=== PATIENT | male | born 1955 | race Caucasian/White ===

== ENCOUNTER 2017-01-09 08:19 | Outpatient (CLI) | payer OTHER ==
[2017-01-09 10:47] LABS: #Basophils 0.1 thou/uL (0.0-0.2); #Eosinphils 0.4 thou/uL (0.0-0.7); #Lymphocytes 4.2 thou/uL (1.20-3.40); #Neutrophils 4.8 thou/uL (1.40-6.50); %Eosinophils 3.7 % (0.0-10.0); %Lymphocytes 39.9 % (21.0-51.0); %Monocytes 9.2 % (0.0-10.0); Bilirubin Negative (Negative); Blood, Urine Negative (Negative); Glucose, Urine (Dipstick) Negative (Negative); Hematocrit 46.7 % (42.0-52.0); Ketone, Urine Negative (Negative); Mean Platelet Volume 8.4 fL (7.4-10.4); Nitrite Negative (Negative); Protein, Urine (Dipstick) Negative (Neg-Trace); Red Blood Cell (RBC) Count 4.79 mill/uL (4.70-6.10); Urobilinogen 0.2 mg/dL (0.2-1.0); White Blood Cell (WBC) Count 10.4 thou/uL (4.8-10.8)
[2017-01-09 10:50] LABS: Bacteria/HPF None Seen HPF (None Seen); Hyaline Casts/LPF 0-3 HYALINE CAST LPF (0-3 Hyaline); Squamous Epithelial 0-3 HPF (0-3)
[2017-01-09 10:54] LABS: Prothrombin Time 13.6 SEC (12.0-14.7)
[2017-01-09 11:03] LABS: RBC/HPF None Seen HPF (0-3)
[2017-01-09 11:11] LABS: Anion Gap 13 mmol/L (10-20); BUN (Urea Nitrogen) 15 mg/dL (8.4-25.7); Calc. Creatinine Clearance 0 mL/min (70-130); Calcium 9.2 mg/dL (7.8-10.44); Carbon Dioxide 22 mmol/L (22-29); Chloride 105 mmol/L (98-107); Estimated GFR-MDRD 74
== END 2017-01-09 08:20 | disposition home or self-care (01) ==
LOC: LABBT 08:19
PROVIDERS: ATTEND Orthopaedic Surgery
DX: Z01.818 Encounter for other preprocedural examination (principal); M17.11 Unilateral primary osteoarthritis, right knee
CPT/HCPCS: 80048; 81001; 85025; 85610; 86850; 86900; 86901; 87081; 93005; 93010

== ENCOUNTER 2017-01-09 08:30 | Inpatient (IN) | payer OTHER ==
[2017-01-09 09:15] VITALS: BMI 32.3
[2017-01-16] MEDS ORDERED: Ropivacaine 0.2% HCl/PF 20 ML ONE (06:23)
[2017-01-16] MEDS ORDERED: Lidocaine 1% (PF) 30 ML VIAL ONE (06:23)
[2017-01-16] MEDS ORDERED: Fentanyl 100 MCG/2 ML VIAL ONE ×2 (06:23→07:08)
[2017-01-16] MEDS ORDERED: Midazolam HCl 2 mg/2 ml Vial ONE (06:23)
[2017-01-16] MEDS ORDERED: Clindamycin/D5W 600 mg/50 ml Premix Bag ONE (06:24)
[2017-01-16] MEDS ORDERED: Tranexamic Acid 1,000 MG/100 ML BAG ONE ×2 (06:24→08:48)
[2017-01-16] MEDS ORDERED: Bupivacaine/Epinephrine 0.25% 30 ML VIAL ONE (06:38)
[2017-01-16] MEDS ORDERED: Levofloxacin 500 mg/D5W 100 ml Premix Bag ONE (06:45)
[2017-01-16] MEDS ORDERED: Zolpidem Tartrate 5 MG TAB PO PRN ×2 (07:13→09:21)
[2017-01-16] MEDS ORDERED: Promethazine HCl 25 MG/ML VIAL IM PRN ×3 (07:13→09:21)
[2017-01-16] MEDS ORDERED: traMADol HCl 50 MG TAB PO PRN ×3 (07:13→09:21)
[2017-01-16] MEDS ORDERED: HYDROcodone/Acetaminophen 10/325 mg Tablet PO PRN ×3 (07:13→09:21)
[2017-01-16] MEDS ORDERED: Ondansetron HCl/PF 4 MG/2 ML Vial IVP PRN ×3 (07:13→09:21)
[2017-01-16] MEDS ORDERED: Ropivacaine HCl/PF 250 ML in Premix Bag 1 BAG NERVE BLCK SCH (07:13)
[2017-01-16] MEDS ORDERED: Ketorolac Tromethamine 30 MG/ML VIAL IVP PRN ×2 (07:13→09:21)
[2017-01-16] MEDS ORDERED: Fentanyl 100 MCG/2 ML VIAL IV PRN (07:14)
[2017-01-16] MEDS ORDERED: Promethazine HCl 25 MG/ML VIAL SLOW IVP PRN (07:45)
[2017-01-16] MEDS ORDERED: Tranexamic Acid 1,000 MG in Sodium Chloride 0.9% 100 ML IVPB SCH (09:15)
[2017-01-16] MEDS ORDERED: Fentanyl 100 MCG/2 ML VIAL SLOW IVP PRN ×2 (09:21)
[2017-01-16] MEDS ORDERED: Acetaminophen 325 MG TAB PO PRN (09:21)
[2017-01-16] MEDS ORDERED: diphenhydrAMINE 25 MG CAP PO PRN (09:21)
--- NOTE | 2017-01-16 10:16 | RAD ---
TWO VIEWS RIGHT KNEE: Date: 01-16-17 Comparison: None. History: Evaluate knee following arthroplasty. FINDINGS: There is evidence of recent right total knee arthroplasty with post-operative gas noted within the morteza int and anterior to the right knee joint. There is no evidence for hardware failure. No acute fractur e or dislocation. IMPRESSION: Status post right total knee arthroplasty as above. POS: [facility]
--- NOTE | 2017-01-16 10:55 | OP ---
DATE OF PROCEDURE: 01/16/2017 PREOPERATIVE DIAGNOSIS: Right knee osteoarthritis. POSTOPERATIVE DIAGNOSIS: Right knee osteoarthritis. PROCEDURE PERFORMED: Right total knee arthroplasty. STAFF: Renny Javed M.D. POULTRY FIELD SERVICE TECHNICIAN: Federico Moreno PA-C. ANESTHESIA: Huber. The patient received a LMA with a sciatic catheter single shot sciatic. ESTIMATED BLOOD LOSS: 100 mL. TOURNIQUET TIME: 64 minutes. ANTIBIOTICS: Clindamycin and Levaquin. IMPLANTS: The patient had a Simplex cement with a [place] CR size 5 femur, size 5 tibia, 9 CS femur with A32 patella [place] implants. COMPLICATIONS: None. HISTORY OF PRESENT ILLNESS: Mr. Love is a pleasant 61-year-old male who presented with lateral and medial knee pain for over a year. The patient has continued to have pain and had difficulty with wa lking and standing for long periods of time. I discussed with the patient the risks and benefits of right knee total knee arthroplasty to include pain, scar, bleeding, infection, damage to vital struct ures, decreased range of motion or strength, continued pain despite surgical intervention, failure th e procedure, damage to vital structures, loss of life or limb. He understood the risks and benefits and elected to proceed. PROCEDURE IN DETAIL: Timeout was performed designating the patient's right lower extremity as the op erative site based on sight, consents, and markings. After timeout, the patient's right lower extrem ity was prepped and draped in sterile fashion. Tourniquet was brought up and left up for a total of 64 minutes. Anterior and medial patellar approach was then made, fat pad was excised. Medial soft t issue released, osteophytes were excised. We pinned and mapped out the distal femur and cut 0 degree s varus valgus, 4 degrees of posterior slope. We then did a 8 and 10 respectively had a nice cut in the notch, just the thin edge of the bone. We then placed our guide based on [place] line, webmaster al rotation 3 degrees. We pinned it into place, we cut anterior and posterior, and chamfer cuts, had overall good alignment of the femoral cut. We then moved to our tibia, we took our ACL, we then rec essed our PCL. We mapped out our tibia and cut about 2 mm off the low side and 5 mm insert in about 8 mm off the high side. We cut 0 degrees varus valgus. We cut. We put him in 4 degrees posterior s suzanne. We then excised and removed all the bone, we then placed our lamina software solutions architect, removed our medi al and lateral menisci, decompressed the PCL, took remnant of ACL. After completion of this we trial ed the size 5 9 patella, we had good overall, I liked the position of the tray, the anterior 1/3, I l iked the overall position, had good traction, flexion, good flexion, some bouncing good extension, 0 and 30 degrees varus and valgus stability. We then washed. We everted our patella, went from about a 26 mm patella cut to about 14 mm and placed an A32 patella, it tracked well. We then drilled our h oles for our lugs, removed our femoral component, punched our keel for our tibia. Removed excess, wa shed and cemented our tibia, femur with our poly in between, placed our patella cement, washed out. We then started closing with 0 Vicryl, #2 Quill, 0 Quill, 2-0 Quill and glue. The patient will be weightbearing as tolerated. He will follow [place] protocol. He will be admi tted to hospital.
[2017-01-16] MEDS: HYDROcodone/Acetaminophen 10/325 mg Tablet PO PRN (14:10)
[2017-01-16] MEDS: CEFAZOLIN/Water 2 GM/20 ML SYRINGE SLOW IVP SCH ×2 (15:35→23:59)
[2017-01-16] MEDS: Dextrose 5 %-0.45 % NaCl 1,000 ML IV SCH ×2 (15:55→20:33)
[2017-01-16] MEDS: Clindamycin/D5W 900 MG in Premix Bag 1 BAG IVPB SCH ×2 (15:56→20:34)
[2017-01-16] MEDS ORDERED: Ropivacaine 0.2% HCl/PF (40 MG/20 ML VIAL) ONE (16:25)
[2017-01-16] MEDS ORDERED: Ropivacaine 0.5% HCl/PF (150 MG/30 ML VIAL) ONE (16:25)
[2017-01-16] MEDS ORDERED: Lidocaine 1% PF 5 ML VIAL ONE (17:08)
[2017-01-16] MEDS ORDERED: Propofol 200 MG/20 ML VIAL ONE (17:08)
[2017-01-16] MEDS ORDERED: PHENYLEPHRINE-NS 100 MCG/ML 10 ML SYRINGE ONE (17:08)
[2017-01-16] MEDS ORDERED: Dexamethasone 20 MG/5 ML VIAL ONE (17:08)
[2017-01-16] MEDS ORDERED: Ondansetron HCl/PF 4 MG/2 ML Vial ONE (17:08)
[2017-01-16] MEDS ORDERED: hydrALAZINE 20 MG/ML VIAL SLOW IVP PRN ×2 (18:19→18:48)
--- NOTE | 2017-01-17 00:36 | CON ---
DATE OF CONSULTATION: 01/16/2017 REASON FOR ADMISSION: Right knee pain, status post right TKA. REASON FOR CONSULTATION: Medical management. CONSULTING PHYSICIAN: Dr. Renny Javed. HISTORY OF PRESENT ILLNESS: This is a 61-year-old pleasant gentleman who was apparently in usual sta te of health, came into the hospital because of right knee pain. He is status post right knee arthro plasty and has been admitted for observation. I have been consulted for medical management. At the time of my interview, the patient denies any shortness of breath, chest pain, nausea, vomiting, fever , or chills. He says pain control is adequate. Overall, he is doing pretty well. He just ate his d inner and also took a few steps. PAST MEDICAL HISTORY: Significant for kidney stones, arthritis, GERD. PAST SURGICAL HISTORY: Lithotripsy, urinary stent, umbilical hernia repair and appendectomy. ALLERGIES: SULFA. SOCIAL HISTORY: Smokes 1 pack per day, says he quit 1 month back, socially drinks alcohol, no recrea tional drug use. FAMILY HISTORY: Negative for diabetes and hypertension. MEDICATIONS: [id number]-vscmpuk pain medications and Zantac. REVIEW OF SYSTEMS: Significant for right knee discomfort. Otherwise, no fever, no chills, no headac he, no appetite, no hearing loss, no latencies. No cough, no chest pain, diarrhea, dysuria or polyur ia. No memory or mood changes. No neck pain. PHYSICAL EXAMINATION: VITAL SIGNS: Blood pressure is 156/81, pulse is 81, respirations 18, satting 99% on room air. GENERAL: Patient is lying in bed in no apparent distress. HEENT: Atraumatic and normocephalic. Pupils are equal, round, react to light. Extraocular movement s intact. Mucous membranes moist. NECK: Supple. No JVD. CHEST: Breath sounds. There are no rales or rhonchi. HEART: S1, S2, no murmurs or gallops. ABDOMEN: Soft. EXTREMITIES: Right knee arthroplasty in dressing. Left knee: No cyanosis, clubbing, or edema. Dis stan pulses present. NEUROLOGIC: Alert, awake, oriented. No cranial deficits. No sensorimotor deficits. LABORATORY DATA: Potassium 3.8, creatinine is 1. UA is negative. WBC count is 10.4, hemoglobin is 16. INR is 1.0. ASSESSMENT AND PLAN: 1. Right total knee arthroplasty secondary to arthritis of the right knee. We will do pain manageme nt, physical therapy and follow primary's plan. 2. Hypertension. Continue home medications. 3. Elevated blood pressure. Patient says he does not have a history of blood pressure. He does not want me to start him on any blood pressure pills as of now. Though, he agrees for p.r.n. medication s. We will do p.r.n. hydralazine for him right now. 4. History of tobacco use. He says he has quit. He does not want a nicotine patch right now. 5. Sequential compression devices for deep venous thrombosis prophylaxis. Thanks for letting me participate in this patient's care. I will make recommendations as clinical co bora evolves.
[2017-01-17] MEDS: Dextrose 5 %-0.45 % NaCl 1,000 ML IV SCH ×2 (05:22→16:25)
[2017-01-17 05:40] LABS: Hematocrit 43.1 % (42.0-52.0); Mean Platelet Volume 7.6 fL (7.4-10.4); Red Blood Cell (RBC) Count 4.37 mill/uL (4.70-6.10); White Blood Cell (WBC) Count 21.6 thou/uL (4.8-10.8)
[2017-01-17] MEDS: Senokot S 8.6-50 MG TAB PO SCH ×2 (08:47→19:28)
[2017-01-17] MEDS: Famotidine 20 MG TAB PO SCH (08:47)
[2017-01-17] MEDS: Ferrous Gluconate 324 MG TAB PO SCH ×2 (08:47→17:24)
[2017-01-17] MEDS: Multivitamin W/ Minerals 1 TAB PO SCH (08:47)
[2017-01-17] MEDS: HYDROcodone/Acetaminophen 10/325 mg Tablet PO PRN ×3 (08:48→19:27)
[2017-01-17] MEDS ORDERED: Famotidine 20 MG TAB PO SCH (09:00)
[2017-01-17] MEDS ORDERED: Ropivacaine 0.2% 550 ML 550 ML NERVE BLCK SCH (11:20)
[2017-01-17] MEDS ORDERED: Sodium Chloride 0.9% 10 ML ONE (17:59)
--- NOTE | 2017-01-17 18:57 | PDOC.PN ---
- Subjective Encounter Start Date: 01/17/17 Encounter Start Time: 18:50 Subjective: f/u s/p R TKA POD #1. Feels ok overall. Some pain when ambulating. No CP -: or SOB. - Objective MAR Reviewed: Yes Vital Signs & Weight: Vital Signs (12 hours) Temp Pulse Resp BP Pulse Ox 01/17/17 16:20 98.4 F 87 16 170/96 H 96 01/17/17 11:30 98.4 F 66 20 158/86 H 96 01/17/17 08:00 98.1 F 67 20 150/87 H 97 Weight Admit Weight 238 lb Weight 238 lb I&O: 01/16/17 01/17/17 01/18/17 06:59 06:59 06:59 Intake Total 1690 1260 Output Total 1975 Balance -285 1260 Result Diagrams: 01/17/17 05:03 Phys Exam - Physical Examination Constitutional: NAD HEENT: PERRLA Neck: no JVD, supple Respiratory: no wheezing, clear to auscultation bilateral Cardiovascular: RRR Gastrointestinal: soft, non-tender, no distention, positive bowel sounds R knee with surgical dressing and DANDRE wrap in place Musculoskeletal: pulses present, edema present Neurological: normal sensation, moves all 4 limbs Psychiatric: A&O x 3 Skin: normal turgor, cap refill <2 seconds Dx/Plan (1) Osteoarthritis of right knee Code(s): M17.11 - UNILATERAL PRIMARY OSTEOARTHRITIS, RIGHT KNEE Status: Chronic Comment: s/p R TKA POD #1, pain control (2) Status post total knee replacement, right Code(s): Z96.651 - PRESENCE OF RIGHT ARTIFICIAL KNEE JOINT Status: Acute Comment: ASA 81mg BID, pain control, PT/OT (3) Elevated blood pressure reading Code(s): R03.0 - ELEVATED BLOOD-PRESSURE READING, W/O DIAGNOSIS OF HTN Status : Acute (4) Tobacco abuse Code(s): Z72.0 - TOBACCO USE Status: Chronic - Plan PT/OT, out of bed/ambulate, DVT proph w/SCDs Stable overall -: Continue routine Joint U protocol -: ASA 81mg BID -: Outpt PT/OT on d/c -: AM lab: CBC * .
[2017-01-18] MEDS: HYDROcodone/Acetaminophen 10/325 mg Tablet PO PRN ×3 (01:29→09:45)
[2017-01-18] MEDS: Dextrose 5 %-0.45 % NaCl 1,000 ML IV SCH ×2 (01:31→11:17)
[2017-01-18 05:17] LABS: Hematocrit 41.6 % (42.0-52.0); Mean Platelet Volume 7.4 fL (7.4-10.4); Red Blood Cell (RBC) Count 4.23 mill/uL (4.70-6.10); White Blood Cell (WBC) Count 20.3 thou/uL (4.8-10.8)
[2017-01-18] MEDS: Senokot S 8.6-50 MG TAB PO SCH (09:44)
[2017-01-18] MEDS: Multivitamin W/ Minerals 1 TAB PO SCH (09:44)
[2017-01-18] MEDS: Ferrous Gluconate 324 MG TAB PO SCH (09:44)
[2017-01-18] MEDS: Famotidine 20 MG TAB PO SCH (09:44)
[2017-01-18 13:29] VITALS: BP 164/101; TEMP 98.4
--- NOTE | 2017-01-19 13:03 | DIS ---
DATE OF ADMISSION: 01/16/2017 DATE OF DISCHARGE: 01/18/2017 DISCHARGE DISPOSITION: Home. ADMISSION DIAGNOSIS: End-stage tricompartmental osteoarthritis, right knee. DISCHARGE DIAGNOSIS: End-stage tricompartmental osteoarthritis, right knee. OPERATIVE PROCEDURE: Right total knee arthroplasty. CONSULTANTS: [facility] for acute postop pain management and [facility] fo r medical management. BRIEF CLINICAL HISTORY: This patient is a 61-year-old male. The patient was admitted to [facility] and underwent the above elective procedure on the date of admission without in tra, cristiane, or postoperative complication. The hospital course was unremarkable. At the time of disc harge, the patient is afebrile, ambulatory without assistance utilizing a rolling walker in a full we ightbearing fashion, tolerating a regular diet, and voiding without difficulty. The patient's incisi on is clean and closed without any erythema. DISCHARGE MEDICATIONS: Please see medication reconciliation form. We will be happy to see the patient on an as needed basis between now and her next scheduled appointm ent. CONDITION ON DISCHARGE: Stable. PROGNOSIS: Good.
== END 2017-01-18 15:05 | disposition home or self-care (01) | DRG 470 ==
LOC: SJJU 01-16 05:33
PROVIDERS: ADMIT Orthopaedic Surgery; ATTEND Orthopaedic Surgery
PROC: 0SRC0J9 Replacement of Right Knee Joint with Synthetic Substitute, Cemented, Open Approach (ICD-10-PCS; principal; 2017-01-16)
PROC: 3E0T3BZ Introduction of Anesthetic Agent into Peripheral Nerves and Plexi, Percutaneous Approach (ICD-10-PCS; 2017-01-16)
DX: M17.11 Unilateral primary osteoarthritis, right knee (principal); I10 Essential (primary) hypertension; Z87.442 Personal history of urinary calculi; Z88.2 Allergy status to sulfonamides; Z88.1 Allergy status to other antibiotic agents; Z88.8 Allergy status to other drugs, medicaments and biological substances; Z87.891 Personal history of nicotine dependence; Z81.8 Family history of other mental and behavioral disorders; Z80.1 Family history of malignant neoplasm of trachea, bronchus and lung; Z80.8 Family history of malignant neoplasm of other organs or systems
CPT/HCPCS: 36415; 85027; 86850; 86900; 86901; A4216; A4306; C1713; C1776; G8978-GP-CJ; G8979-GP-CJ; J1100; J1956; J2001; J2250; J2405; J2704; J2795; J3010; J3490

== ENCOUNTER 2017-04-02 16:40 | Emergency (ER) | payer OTHER ==
[2017-04-02 17:02] LABS: Bilirubin Negative (Negative); Blood, Urine Moderate (Negative); Clarity CLEAR (Clear); Glucose, Urine (Dipstick) Negative (Negative); Leukocyte Negative (Negative); Nitrite Negative (Negative); Protein, Urine (Dipstick) 30 mg/dL (Neg-Trace); Specific Gravity, Urine 1.027 (1.002-1.036)
[2017-04-02 17:05] LABS: Bacteria/HPF None Seen HPF (None Seen); Hyaline Casts/LPF 4-6 HYALINE CAST LPF (0-3 Hyaline); RBC/HPF 21-50 HPF (0-3); Squamous Epithelial 0-3 HPF (0-3); WBC/HPF 0-3 HPF (0-3)
[2017-04-02 18:01] LABS: #Eosinphils 0.1 thou/uL (0.0-0.7); #Lymphocytes 2.9 thou/uL (1.20-3.40); #Monocytes 1.4 thou/uL (0.11-0.59); #Neutrophils 8.9 thou/uL (1.40-6.50); %Basophils 0.3 % (0.0-1.0); %Eosinophils 0.6 % (0.0-10.0); %Lymphocytes 21.6 % (21.0-51.0); %Monocytes 10.8 % (0.0-10.0); %Neutrophils 66.7 % (42.0-75.0); Hemoglobin 14.2 g/dL (14.0-18.0); Mean Corpuscular HGB CONC 34.8 g/dL (32.0-36.0); Mean Corpuscular Hemoglobin 32.6 pg (27.0-31.0); Mean Corpuscular Volume 93.6 fl (80.0-94.0); Platelet Count 308 thou/uL (130-400); RBC Distribution Width 11.7 % (11.5-14.5); Red Blood Cell (RBC) Count 4.35 mill/uL (4.70-6.10); White Blood Cell (WBC) Count 13.3 thou/uL (4.8-10.8)
[2017-04-02] MEDS ORDERED: Ondansetron HCl/PF 4 MG/2 ML Vial ONE (18:06)
[2017-04-02] MEDS ORDERED: Ketorolac Tromethamine 30 MG/ML VIAL ONE (18:06)
[2017-04-02 18:24] LABS: Anion Gap 12 mmol/L (10-20); BUN (Urea Nitrogen) 14 mg/dL (8.4-25.7); Calc. Creatinine Clearance 0 mL/min (70-130); Calcium 9.3 mg/dL (7.8-10.44); Carbon Dioxide 26 mmol/L (23-31); Chloride 99 mmol/L (98-107); Estimated GFR-MDRD 56; Glucose 109 mg/dL (80-115); Potassium 3.8 mmol/L (3.5-5.1); Sodium 133 mmol/L (136-145)
--- NOTE | 2017-04-02 18:34 | CT ---
CT ABDOMEN AND PELVIS: Date: 04-02-17 Comparison: 09-28-14 History: Pain. Technique: Serial axial CT imaging at 5 mm intervals from lung bases through pubic symphysis without contrast. Coronal reformatted imaging obtained. FINDINGS: The lack of contrast media limits assessment of the imaged viscera, bowel, vascular structures and fo r lymphadenopathy. There is mild linear density in the lingula suggesting scarring or volume loss. No free intraperitone al air or fluid. Liver, spleen, gallbladder, pancreas, and adrenal glands demonstrates no acute findings. There are a few vague hypodensities noted within the left kidney, incompletely characterized on this exam. There is a nonobstructing stone in the lower pole of the left kidney measuring approximately 4 mm. There is no evidence for obstructed uropathy on the left. There are three subcentimeter nonobstructing stones within the right kidney, the largest right infrar enal stone measuring in the 3-4 mm range. There is right sided hydronephrosis, nephromegaly and perin ephric stranding, indicating obstructive uropathy. This is on the basis of a stone within the right u reter which measures approximately 5 mm in craniocaudal dimension and approximately 5 mm in transvers e dimension. This stone within the mid right ureter is at the axial level of the L3-4 disc interspace . No additional obstructing stones are seen within the right ureter. Limited assessment of the bowel appears grossly unremarkable. No acute osseous abnormality. There is lower lumbar spine facet hypertrophic change. IMPRESSION: 1. Obstructive uropathy on the right secondary to a stone within the mid right ureter measuring in th e 5-6 mm range. Intrarenal calculi are noted bilaterally, right more numerous than left. POS: [facility]
[2017-04-02] MEDS ORDERED: HYDROcodone/Acetaminophen 5/325 mg Tablet ONE (19:26)
== END 2017-04-02 19:35 | disposition home or self-care (01) ==
LOC: ERS 16:40
DX: N13.2 Hydronephrosis with renal and ureteral calculous obstruction (principal); Z87.891 Personal history of nicotine dependence; Z79.899 Other long term (current) drug therapy
CPT/HCPCS: 36415; 74176; 81003; 81015; 96374; 96375; J1885; J2270; J2405

== ENCOUNTER 2017-04-10 05:43 | Day surgery (SDC) | payer OTHER ==
[2017-04-10] MEDS ORDERED: Ondansetron HCl/PF 4 MG/2 ML Vial ONE (06:11)
[2017-04-10 06:37] LABS: #Basophils 0.1 thou/uL (0.0-0.2); #Eosinphils 0.3 thou/uL (0.0-0.7); #Lymphocytes 3.7 thou/uL (1.20-3.40); #Monocytes 0.9 thou/uL (0.11-0.59); #Neutrophils 5.3 thou/uL (1.40-6.50); %Lymphocytes 36.1 % (21.0-51.0); %Monocytes 8.6 % (0.0-10.0); %Neutrophils 51.4 % (42.0-75.0); Hemoglobin 14.7 g/dL (14.0-18.0); Mean Corpuscular Hemoglobin 31.1 pg (27.0-31.0); Mean Platelet Volume 6.9 fL (7.4-10.4); Platelet Count 313 thou/uL (130-400); RBC Distribution Width 11.9 % (11.5-14.5); Red Blood Cell (RBC) Count 4.73 mill/uL (4.70-6.10); White Blood Cell (WBC) Count 10.3 thou/uL (4.8-10.8)
[2017-04-10 06:58] LABS: ALT (SGPT) 13 U/L (8-55); AST (SGOT) 19 U/L (5-34); Alkaline Phosphatase 86 U/L (40-150); Anion Gap 14 mmol/L (10-20); BUN (Urea Nitrogen) 16 mg/dL (8.4-25.7); Bilirubin, Total 0.4 mg/dL (0.2-1.2); Calc. Creatinine Clearance 0 mL/min (70-130); Calcium 9.3 mg/dL (7.8-10.44); Carbon Dioxide 23 mmol/L (23-31); Chloride 106 mmol/L (98-107); Estimated GFR-MDRD 81; Globulin 2.4 g/dL (2.4-3.5); Glucose 99 mg/dL (80-115); Potassium 4.1 mmol/L (3.5-5.1); Protein, Total 6.4 g/dL (5.8-8.1); Sodium 139 mmol/L (136-145)
[2017-04-10] MEDS ORDERED: Ketorolac Tromethamine 30 MG/ML VIAL ONE (07:21)
[2017-04-10 07:52] LABS: Bilirubin Negative (Negative); Blood, Urine Trace (Negative); Glucose, Urine (Dipstick) Negative (Negative); Leukocyte Negative (Negative); Nitrite Negative (Negative); Protein, Urine (Dipstick) Negative (Neg-Trace); Specific Gravity, Urine 1.015 (1.005-1.030); Urobilinogen 0.2 mg/dL (0.2-1.0)
[2017-04-10 08:01] LABS: Clarity Clear (Clear)
[2017-04-10 08:05] LABS: Bacteria/HPF None Seen HPF (None Seen); Hyaline Casts/LPF 0-3 HYALINE CAST LPF (0-3 Hyaline); RBC/HPF 0-3 HPF (0-3); Squamous Epithelial None Seen HPF (0-3)
--- NOTE | 2017-04-10 08:13 | RAD ---
KUB: INDICATION: History of right-sided renal stone. COMPARISON: Recent CT of the abdomen and pelvis without contrast dated 04/02/17. The 5 mm calculus involving the proximal right ureter on the comparison examination is not definitely visualized on the current study . No suspicious calcifications seen along the expected course of the renal collecting systems. A mi ld amount of retained stool is seen within the right hemicolon. The transverse colon partially obscu res the right renal shadow. The tiny nonobstructing calculus involving the inferior pole of the righ t kidney is demonstrated. No acute osseous abnormality is evident. IMPRESSION: 1. Small calculus is seen in the proximal right kidney measuring up to 5 mm on the comparison CT exa mination of 04/02/17 is not definitely visualized on the current KUB and may have intervally passed. 2. Left nephrolithiasis. POS: [facility]
[2017-04-10 08:37] LABS: Crystals/HPF None Seen HPF (Negative)
[2017-04-10] MEDS ORDERED: Levofloxacin 500 mg/D5W 100 ml Premix Bag ONE (12:48)
[2017-04-10] MEDS ORDERED: Fentanyl 100 MCG/2 ML VIAL ONE (13:54)
[2017-04-10] MEDS ORDERED: Midazolam HCl 2 mg/2 ml Vial ONE (13:54)
== END 2017-04-10 17:08 | disposition home or self-care (01) ==
LOC: ERS 05:43 → SDC 11:39
PROVIDERS: ATTEND Urology
PROC: 0TF68ZZ Fragmentation in Right Ureter, Via Natural or Artificial Opening Endoscopic (ICD-10-PCS; principal; 2017-04-10)
PROC: 0T768DZ Dilation of Right Ureter with Intraluminal Device, Via Natural or Artificial Opening Endoscopic (ICD-10-PCS; principal; 2017-04-10)
DX: N20.0 Calculus of kidney (principal); N20.1 Calculus of ureter; K21.9 Gastro-esophageal reflux disease without esophagitis; M17.11 Unilateral primary osteoarthritis, right knee; F17.290 Nicotine dependence, other tobacco product, uncomplicated; Z79.2 Long term (current) use of antibiotics; Z79.899 Other long term (current) drug therapy; Z88.2 Allergy status to sulfonamides; Z88.1 Allergy status to other antibiotic agents; Z98.890 Other specified postprocedural states; Z87.442 Personal history of urinary calculi
CPT/HCPCS: 74018; 80053; 81003; 81015; 85025; 93005; J1885; J1956; J2250; J2270; J2405; J3010

== ENCOUNTER 2017-06-11 10:29 | Outpatient (CLI) | payer OTHER | END 2017-06-11 10:30 | disposition home or self-care (01) | LOC: BICULT 10:29 | PROVIDERS: ATTEND Urology | DX: N20.0 Calculus of kidney (principal) | CPT/HCPCS: 76770 ==

== ENCOUNTER 2017-10-24 20:30 | Outpatient (CLI) | payer OTHER | END 2017-10-24 20:31 | disposition home or self-care (01) | LOC: SLEEPLAB 20:30 | PROVIDERS: ATTEND Internal Medicine | DX: G47.33 Obstructive sleep apnea (adult) (pediatric) (principal); E66.9 Obesity, unspecified; K21.9 Gastro-esophageal reflux disease without esophagitis; Z68.31 Body mass index [BMI] 31.0-31.9, adult | CPT/HCPCS: 95806 ==

== ENCOUNTER 2018-01-22 06:41 | Outpatient (CLI) | payer OTHER ==
--- NOTE | 2018-01-22 09:35 | ULT ---
SONOGRAM RIGHT UPPER QUADRANT: History: Abnormal liver function tests. FINDINGS: The gallbladder has a normal appearance. Common duct is 0.3 cm. Liver is diffusely echogenic with are as of more normal echogenicity near the gallbladder fossa. No free fluid. Thinning of the cortex of t he right kidney. IMPRESSION: 1. No evidence of gallstones or biliary obstruction. 2. Hepatosteatosis. POS: [facility]
== END 2018-01-22 06:42 | disposition home or self-care (01) ==
LOC: BICULT 06:41
PROVIDERS: ATTEND Internal Medicine
DX: R74.0 Nonspecific elevation of levels of transaminase and lactic acid dehydrogenase [LDH] (principal); K76.0 Fatty (change of) liver, not elsewhere classified
CPT/HCPCS: 76705

== ENCOUNTER 2019-11-20 13:55 | Outpatient (CLI) | payer OTHER ==
[~2019-11-20 13:55] MED LIST: Iopamidol-370 76% 500 ML 1 ML ONE
--- NOTE | 2019-11-20 15:14 | CT ---
CT ANGIOGRAM THORAX WITH AND WITHOUT IV CONTRAST AND 3-D RECONSTRUCTIONS CLINICAL INDICATION: Ascending aortic aneurysm. COMPARISON: None FINDINGS: Pulmonary arteries: No filling defects are seen in the pulmonary arteries to suggest a pulmonary embo stuart. Aorta: Ascending thoracic aorta is ectatic measuring 4.3 cm in diameter. The descending thoracic aort a is normal in caliber measuring 3 cm in diameter. There is no evidence of an aortic dissection. There is a normal arrangement of the great vessels at the aortic arch which are patent. Lungs: There is an irregular 5 mm pulmonary nodule in the right lung apex with a smaller 3 mm pulmona ry nodule in the right anterolateral aspect right upper lobe. These nodules are overall nonspecific. There is dependent bibasilar atelectasis. Linear densities in the lingula and right midd le lobe are also likely attributable to atelectasis. No consolidation or pleural fluid is seen. Mediastinum: No enlarged lymph nodes are seen by CT size criteria. Thyroid gland: Normal CT appearance. Osseous structures: No suspicious lytic or sclerotic osseous lesion. Chest wall: No abnormality visualized. Upper abdomen: Limited visualized upper abdomen demonstrates normal CT appearance for arterial phase of imaging. IMPRESSION: 1. Ectasia of the ascending thoracic aorta which measures 4.3 cm in greatest dimension. Descending th oracic aorta is normal in caliber. There is no evidence of an aortic dissection. 3. Nonspecific pulmonary nodules right upper lobe largest measuring 5 mm. Follow-up evaluation in 6 [facility] is recommended.
== END 2019-11-20 13:56 | disposition home or self-care (01) ==
LOC: BICCT 13:55
PROVIDERS: ATTEND Internal Medicine Cardiovascular Disease
DX: I71.2 Thoracic aortic aneurysm, without rupture (principal); I77.810 Thoracic aortic ectasia; R91.8 Other nonspecific abnormal finding of lung field
CPT/HCPCS: 71275; 82565; Q9967

== ENCOUNTER 2019-12-15 22:31 | Emergency (ER) | payer OTHER ==
[~2019-12-15 22:31] MED LIST changes: +Iopamidol 370 76% 100 ML VIAL ONE; -Iopamidol-370 76% 500 ML 1 ML ONE
--- NOTE | 2019-12-15 23:03 | RAD ---
Portable frontal chest radiograph: 12/15/2019 COMPARISON: 09/28/2014 HISTORY: Chest pain FINDINGS: Mild increased linear interstitial density. Pulmonary hyperinflation. Stable prominence of the cardiac silhouette area no focal consolidation or alveolar edema. IMPRESSION: No focal consolidation or alveolar edema.
[2019-12-15 23:17] LABS: #Basophils 0.1 thou/uL (0.0-0.2); #Eosinphils 0.4 thou/uL (0.0-0.7); #Lymphocytes 5.7 thou/uL (1.20-3.40); #Monocytes 1.3 thou/uL (0.11-0.59); #Neutrophils 5.5 thou/uL (1.40-6.50); %Basophils 1.1 % (0.0-1.0); %Eosinophils 3.3 % (0.0-10.0); %Lymphocytes 43.6 % (21.0-51.0); %Monocytes 9.9 % (0.0-10.0); %Neutrophils 42.1 % (42.0-75.0); Hemoglobin 15.9 g/dL (14.0-18.0); Mean Corpuscular HGB CONC 35.7 g/dL (32.0-36.0); Mean Corpuscular Hemoglobin 33.8 pg (27.0-31.0); Mean Corpuscular Volume 94.6 fL (78.0-98.0); Platelet Count 218 thou/uL (130-400); RBC Distribution Width 12.2 % (11.5-14.5); Red Blood Cell (RBC) Count 4.71 mill/uL (4.70-6.10)
[2019-12-15 23:43] LABS: ALT (SGPT) 59 U/L (8-55); AST (SGOT) 43 U/L (5-34); Albumin 4.4 g/dL (3.4-4.8); Alkaline Phosphatase 77 U/L (40-110); Anion Gap 15 mmol/L (10-20); BUN (Urea Nitrogen) 18 mg/dL (8.4-25.7); Bilirubin, Total 0.6 mg/dL (0.2-1.2); Calc. Creatinine Clearance 0 mL/min (70-130); Calcium 9.5 mg/dL (7.8-10.44); Carbon Dioxide 25 mmol/L (23-31); Chloride 100 mmol/L (98-107); Estimated GFR-MDRD 69; Globulin 3.1 g/dL (2.4-3.5); Glucose 102 mg/dL (80-115); Potassium 3.4 mmol/L (3.5-5.1); Protein, Total 7.5 g/dL (5.8-8.1); Sodium 137 mmol/L (136-145)
--- NOTE | 2019-12-16 00:04 | CT ---
CT angiogram of the chest and abdomen: 12/15/2019 HISTORY: Chest pain TECHNIQUE: Axial CT imaging at 2.5 mm intervals from the thoracic inlet through the aortic bifurcatio n with IV contrast using CT angiogram protocol. Coronal and sagittal 3-D reformatted imaging obtained. FINDINGS: No axillary, hilar, or mediastinal lymphadenopathy. The ascending aorta is prominent, measuring up to 4.3 cm, unchanged when compared to CT angiogram cece st performed 11/20/2019. No pleural, pericardial, or mediastinal fluid is seen area there is no evidence for dissection of the thoracic or the abdominal aorta. There is no pneumothorax noted on either side. No endobronchial lesion is evident. No discrete/dominant pulmonary parenchymal mass lesion/nodule not ed. Osseous structures of the chest and abdomen demonstrate no acute findings. The pelvis is not imaged on this exam. The hepatic parenchyma is hypodense suggesting steatosis. The gallbladder is decompressed. The spleen, pancreas, adrenal glands, and kidneys demonstrate no acu te findings. There is a punctate nonobstructing stone in the upper pole and lower pole of the right kidney. There is a nonobstructing stone in the lower pole of the left kidney measuring 5 mm. There is an anterior midpole left renal cyst. The celiac axis, superior mesenteric artery, bilateral renal arteries and inferior mesenteric artery appear patent. There is an accessory lower pole right renal artery present. There is no evidence for abdominal lymphadenopathy. Limited assessment of the imaged bowel appears grossly unremarkable. IMPRESSION: Stable ectasia of the ascending aorta. No evidence for abdominal or thoracic aortic disse ction. Incidental findings as detailed above.
== END 2019-12-16 00:39 | disposition home or self-care (01) ==
LOC: ERS 22:31
DX: I10 Essential (primary) hypertension (principal); R53.83 Other fatigue; Z79.899 Other long term (current) drug therapy; Z87.891 Personal history of nicotine dependence
CPT/HCPCS: 71045; 71275; 74174; 80053; 84484; 85025; 93005; Q9967

== ENCOUNTER 2021-04-14 07:20 | Outpatient (CLI) | payer BC | END 2021-04-14 07:21 | disposition home or self-care (01) | LOC: BICCT 07:20 | PROVIDERS: ATTEND Urology | DX: N28.1 Cyst of kidney, acquired (principal); N20.0 Calculus of kidney; M87.851 Other osteonecrosis, right femur | CPT/HCPCS: 74178; 82565 ==

== ENCOUNTER 2022-03-02 10:51 | Outpatient (CLI) | payer BC | END 2022-03-02 10:52 | disposition home or self-care (01) | LOC: BICRAD 10:51 | PROVIDERS: ATTEND Nurse Practitioner Family | DX: M79.671 Pain in right foot (principal) ==